=== PATIENT | female | born 1965 | race Caucasian/White ===

== ENCOUNTER 2022-01-12 20:58 | Emergency (ER) | payer MEDICARE, MEDICAID ==
[~2022-01-12] VITALS: Ht 160 cm; Wt 86.4 kg
[2022-01-12 21:39] LABS: BASOPHILS # (AUTO) 0.1 X10'3 (0-0.2); BASOPHILS % (AUTO) 1.3 % (0-1); EOSINOPHILS # (AUTO) 0.5 X10'3 (0-0.9); EOSINOPHILS % (AUTO) 7.9 % (0-6); HEMATOCRIT 35.1 % (35.0-45.0); HEMOGLOBIN 11.6 g/dl (12.0-16.0); LYMPHOCYTES # (AUTO) 1.6 X10'3 (1.1-4.8); LYMPHOCYTES % (AUTO) 26.5 % (21-51); MEAN CORPUSCULAR HEMOGLOBIN 30.4 PG (27.0-31.0); MEAN CORPUSCULAR VOLUME 92.1 FL (78-98); MEAN PLATELET VOLUME 8.1 FL (7.4-10.4); MONOCYTES # (AUTO) 0.7 X10'3 (0-0.9); MONOCYTES % (AUTO) 11.7 % (2-12); NEUTROPHILS # (AUTO) 3.2 X10'3 (1.8-7.7); NEUTROPHILS % (AUTO) 52.6 % (42-75); PLATELET COUNT 253 X10'3 (140-440); RED BLOOD COUNT 3.81 X10'6 (4.20-5.60); WHITE BLOOD COUNT 6.1 X10'3 (4.5-11.0)
[2022-01-12 21:45] LABS: URINE AMPHETAMINE SCREEN NEGATIVE (Neg); URINE BARBITUATE SCREEN NEGATIVE (Neg); URINE BENZODIAZEPINES SCREEN NEGATIVE (Neg); URINE CANNABINOID SCREEN NEGATIVE (Neg); URINE COCAINE SCREEN NEGATIVE (Neg); URINE METHADONE SCREEN NEGATIVE (Neg); URINE OPIATE SCREEN NEGATIVE (Neg); URINE PHENCYCLIDINE SCREEN NEGATIVE (Neg)
[2022-01-12 21:49] LABS: ALANINE AMINOTRANSFERASE 34 U/L (12-78); ALBUMIN 3.9 G/DL (3.4-5.0); ALBUMIN/GLOBULIN RATIO 1.2 (1.1-1.5); ALKALINE PHOSPHATASE 82 IU/L (46-116); ANION GAP 8 (8-16); ASPARTATE AMINO TRANSFERASE 20 U/L (10-37); BILIRUBIN,TOTAL 0.5 MG/DL (0.1-1.0); BLOOD UREA NITROGEN 20 MG/DL (7-18); BUN/CREATININE RATIO 17.9 (6.6-38.0); CALCIUM 8.9 MG/DL (8.5-10.1); CHLORIDE 105 MMOL/L (99-107); CREATININE 1.12 MG/DL (0.40-0.90); GLUCOSE 75 MG/DL (70-104); POTASSIUM 4.4 MMOL/L (3.5-5.1); SODIUM 141 MMOL/L (135-145); TOTAL CARBON DIOXIDE 28.1 MMOL/L (24-32); TOTAL PROTEIN 7.1 G/DL (6.4-8.2); eGFR 50 ML/MIN
[2022-01-12 22:04] LABS: CLARITY,URINE CLEAR (Clear); COLOR,URINE YELLOW (Yellow); GLUCOSE, URINE NEGATIVE (Neg); KETONES,URINE NEGATIVE (Neg); LEUKOCYTE ESTERASE ,URINE SMALL (Neg); NITRITES, URINE NEGATIVE (Neg); OCCULT BLOOD,URINE NEGATIVE (Neg); PROTEIN,URINE NEGATIVE (Neg); UROBILINOGEN,URINE 0.2 E.U/dL (0.2-1.0)
[2022-01-12 22:10] LABS: UA COLLECTION TYPE CLN CATCH MIDSTREAM
[2022-01-12 22:14] LABS: BACTERIA,URINE FEW /HPF (Neg); SQUAMOUS EPITHELIAL CELL,UR NONE SEEN /LPF (FEW)
[2022-01-12] MEDS ORDERED: NITR100C6 PO (22:59)
[2022-01-12] MEDS ORDERED: nitrofuran monohydrate/nitrofuran macrocrysal 100 MG (MacroBID) capsule PO ONE (23:00)
[2022-01-12 23:18] VITALS: BP 124/72
== END 2022-01-12 23:22 | disposition home or self-care (01) ==
LOC: ER 20:59
DX: Z13.89 Encounter for screening for other disorder (principal); N39.0 Urinary tract infection, site not specified; R44.3 Hallucinations, unspecified; R41.82 Altered mental status, unspecified; E78.00 Pure hypercholesterolemia, unspecified; G89.29 Other chronic pain; F31.9 Bipolar disorder, unspecified; Z88.0 Allergy status to penicillin; Z88.2 Allergy status to sulfonamides; Z79.899 Other long term (current) drug therapy
CPT/HCPCS: 36415; 70450; 71045; 80053; 80305; 81001; 85025; 93005; 99285

== ENCOUNTER 2022-12-24 17:44 | Emergency (ER) | payer MEDICARE, MEDICAID ==
[~2022-12-24] VITALS: Ht 160 cm; Wt 74.0 kg
[~2022-12-24 17:44] MED LIST: AMIT150T PO; ASPI-611 PO; ATI1T PO; BUPR200T27 PO; BUSP5TAB26 PO; CHLO25TA68 PO; CHOL100046 PO; CYCL10TA25 PO; GABA600T13 PO; HYDR-3686 PO; PALI819S IM; PANT40TA54 PO; SIMV-42 PO; TRAM50TA2 PO; TRAZ-256 PO
[2022-12-24 19:25] LABS: CLARITY,URINE SLIGHTLY CLOUDY (Clear); COLOR,URINE YELLOW (Yellow); GLUCOSE, URINE NEGATIVE (Neg); KETONES,URINE 40 mg/dl (Neg); LEUKOCYTE ESTERASE ,URINE SMALL (Neg); NITRITES, URINE NEGATIVE (Neg); OCCULT BLOOD,URINE NEGATIVE (Neg); PROTEIN,URINE NEGATIVE (Neg); UROBILINOGEN,URINE 0.2 E.U/dL (0.2-1.0)
[2022-12-24 19:30] LABS: BASOPHILS # (AUTO) 0.1 X10'3 (0-0.2); BASOPHILS % (AUTO) 1.7 % (0-1); EOSINOPHILS # (AUTO) 0.3 X10'3 (0-0.9); EOSINOPHILS % (AUTO) 4.4 % (0-6); HEMATOCRIT 39.1 % (35.0-45.0); HEMOGLOBIN 12.9 g/dl (12.0-16.0); LYMPHOCYTES % (AUTO) 13.4 % (21-51); MEAN CORPUSCULAR HEMOGLOBIN 30.9 PG (27.0-31.0); MEAN CORPUSCULAR VOLUME 93.5 FL (78-98); MONOCYTES # (AUTO) 0.8 X10'3 (0-0.9); MONOCYTES % (AUTO) 10.6 % (2-12); NEUTROPHILS % (AUTO) 69.9 % (42-75); PLATELET COUNT 251 X10'3 (140-440); RED BLOOD COUNT 4.18 X10'6 (4.20-5.60); RED CELL DISTRIBUTION WIDTH 14.7 % (11.5-14.5); WHITE BLOOD COUNT 7.1 X10'3 (4.5-11.0)
[2022-12-24 19:52] LABS: ALANINE AMINOTRANSFERASE 20 U/L (12-78); ALBUMIN/GLOBULIN RATIO 1.3 (1.1-1.5); ALKALINE PHOSPHATASE 82 IU/L (46-116); ANION GAP 9 (8-16); ASPARTATE AMINO TRANSFERASE 9 U/L (10-37); BILIRUBIN,TOTAL 0.4 MG/DL (0.1-1.0); BLOOD UREA NITROGEN 13 MG/DL (7-18); BUN/CREATININE RATIO 14.4 (10.0-20.0); CALCIUM 8.7 MG/DL (8.5-10.1); CHLORIDE 104 MMOL/L (99-107); GLUCOSE 89 MG/DL (70-104); POTASSIUM 3.7 MMOL/L (3.5-5.1); SODIUM 141 MMOL/L (135-145); TOTAL CARBON DIOXIDE 28.5 MMOL/L (24-32); TOTAL PROTEIN 7.2 G/DL (6.4-8.2); eGFR 64 ML/MIN
[2022-12-24 19:57] LABS: URINE AMPHETAMINE SCREEN NEGATIVE (Neg); URINE BARBITUATE SCREEN NEGATIVE (Neg); URINE BENZODIAZEPINES SCREEN NEGATIVE (Neg); URINE CANNABINOID SCREEN NEGATIVE (Neg); URINE COCAINE SCREEN NEGATIVE (Neg); URINE METHADONE SCREEN NEGATIVE (Neg); URINE OPIATE SCREEN NEGATIVE (Neg); URINE PHENCYCLIDINE SCREEN NEGATIVE (Neg)
[2022-12-24 20:18] LABS: UA COLLECTION TYPE VOIDED
[2022-12-24 20:19] LABS: BACTERIA,URINE FEW /HPF (Neg); MUCUS STRANDS MANY /LPF (Neg); RBC,URINE 0-2 /HPF (0-2); SQUAMOUS EPITHELIAL CELL,UR FEW /LPF (FEW); TRANSITIONAL EPI CELLS,URINE FEW /HPF; WBC CLUMPS,URINE FEW /HPF (NEGATIVE); WBC,URINE 30-50 /HPF (0-4)
[2022-12-24] MEDS ORDERED: cephalexin 500mg capsule PO ONE (20:25)
--- NOTE | 2022-12-24 22:16 | NUR ---
Patient brought from main ED to bed 20. Patient is awake and well oriented. She is cooperative. Patient complains of command hallucinations that are telling her to hurt herself. Patient went to a hardware store to get a rope to hang herseld. Acute depression is present. Patient has a Schizoeffective Disorder and CPTSD also. This patient is linear. She makes direct eye contact. Patient placed on bed 20.
[2022-12-24] MEDS ORDERED: TRAZ-251 PO (22:31)
[2022-12-24] MEDS ORDERED: ERGO500041 PO (22:31)
[2022-12-24] MEDS ORDERED: CHLO200T20 PO (22:40)
[2022-12-24] MEDS ORDERED: BUSP5TAB3 PO (22:43)
[2022-12-24] MEDS ORDERED: KETO-96 LEFTEYE (22:46)
[2022-12-24] MEDS ORDERED: KETO-96 RIGHTEYE (22:46)
[2022-12-24] MEDS ORDERED: BUPR100T5 PO (22:55)
[2022-12-24] MEDS ORDERED: AMIT-286 PO (22:59)
[2022-12-24] MEDS ORDERED: PANT-47 PO (23:14)
[2022-12-24] MEDS ORDERED: CETI10TA15 PO (23:16)
[2022-12-24] MEDS ORDERED: FLUT16SP2 BOTHNARES (23:17)
[2022-12-24] MEDS ORDERED: POLY119P2 PO (23:21)
[2022-12-24] MEDS ORDERED: polyethylene glycol 3350 17gm powd pack PO ONE (23:35)
[2022-12-24] MEDS ORDERED: traZODone 150mg tablet PO ONE (23:35)
[2022-12-24] MEDS ORDERED: amitriptyline 50mg tablet PO ONE (23:35)
[2022-12-24] MEDS ORDERED: chlorproMAZINE 25mg tablet PO ONE (23:35)
--- NOTE | 2022-12-25 00:05 | NUR ---
Patient is sleeping intermittently. She self re-positions in bed.
[2022-12-25] MEDS ORDERED: PALI819S IM ×2 (00:34→00:38)
[2022-12-25] MEDS: atorvastatin 10mg tablet PO SCH ×2 (00:44→20:16)
[2022-12-25] MEDS ORDERED: acetaminophen 325mg tablet PO ONE (02:50)
[2022-12-25] MEDS: DOXYCYCLINE 100MG CAPSULE PO SCH ×3 (03:02→20:17)
--- NOTE | 2022-12-25 03:13 | NUR ---
Pt got up and walked up and down the unit. When asked what was going on, she stated "I have a crawling feeling up and down my back that I cannot shake." Primary nurse went to ask EDMD for some ativan to help calm her nerves. Will continue to monitor behavior.
--- NOTE | 2022-12-25 03:13 | NUR ---
Patient awake with anxiety, Dr. Pérez advised. PO Ativan 1 mg ordered.
[2022-12-25] MEDS ORDERED: LORazepam 1 MG tablet PO ONE (03:15)
[2022-12-25 03:50] LABS: URINE HCG NEGATIVE (NEG)
--- NOTE | 2022-12-25 03:50 | NUR ---
Admitting came and collected Pt valueables. 8$ roy and 7 cards were accounted for. Reciept is in Pt wallet, in belongings.
--- NOTE | 2022-12-25 03:53 | NUR ---
Patilent has been given Ativan 1 mg PO for anxiety. Rx antibiotics started for UTI. Tylenol for headaches. Patient is now sleeping quietly in bed.
--- NOTE | 2022-12-25 04:35 | NUR ---
Packet sent to [facility].
--- NOTE | 2022-12-25 05:29 | NUR ---
Patient awoke for vital signs. She rests quietly in bed.
--- NOTE | 2022-12-25 07:06 | NUR ---
KARLA VILLASENOR- Report given. Problems reprioritized.
[2022-12-25] MEDS ORDERED: KETOTIFEN FUMARATE EACHEYE SCH (08:00)
[2022-12-25] MEDS ORDERED: non-formulary drug (Ketotifen Fumarate 1 DROP) RIGHTEYE SCH (08:00)
[2022-12-25] MEDS: busPIRone 5mg tablet PO SCH ×3 (08:03→20:16)
[2022-12-25] MEDS: cetirizine 10mg tablet PO SCH (08:04)
[2022-12-25] MEDS: buPROPion SR 100mg tab PO SCH ×2 (08:04→20:17)
[2022-12-25] MEDS: aspirin 81mg, enteric-coated 1 TAB TABLET.DR PO SCH (08:04)
[2022-12-25] MEDS: pantoprazole 40mg Tablet.DR PO SCH (08:05)
--- NOTE | 2022-12-25 08:11 | NUR ---
PT COMPLIANT WITH AM MEDS, GIVEN BREAKFAST TRAY
[2022-12-25] MEDS: fluticasone nasal spray 16GM bottle NS SCH (08:13)
--- NOTE | 2022-12-25 08:43 | NUR ---
PT APPEARS TO BE SLEEPING, NAD, BREATHING EVEN AND UNLABORED
--- NOTE | 2022-12-25 09:04 | NUR ---
Assumed care from RN. Pt in stable condition. Pt in bed resting.
--- NOTE | 2022-12-25 09:55 | NUR ---
Pt ate her breakfast. Took all meds no ASE noted. Pt states she still feels suicidal. If given the chance pt would hang herself with a rope. No c/o anxiety. Pt states she just feels tired. Pt resting in bed. Declined oral care, or to brush her teeth.
[2022-12-25] MEDS ORDERED: ergocalciferol (vit D2) capsule 50,000 UNITS (1,250mcg) CAPSULE PO SCH (10:00)
--- NOTE | 2022-12-25 11:17 | NUR ---
Pt got up brushed her teeth/ hair. Changed her clothes. Pt is back in bed resting
--- NOTE | 2022-12-25 12:53 | NUR ---
Pt ate 75% of her lunch. Pt asked for her phone to get numbers out so she could call her family. Pt wrote all the numbers down she wanted. Pt sitting up in bed. No c/o anixety or pain.
--- NOTE | 2022-12-25 14:47 | NUR ---
Pt called her family. Pt in bed resting.
--- NOTE | 2022-12-25 15:41 | NUR ---
Pt is resting in the bed w/ eyes closed. Pt is laying on her R side HOB elevated, RR even and unlabored. No s/s of SOB.
--- NOTE | 2022-12-25 17:07 | NUR ---
Pt is resting in the bed w/ eyes closed. Pt is laying on her back HOB elevated
--- NOTE | 2022-12-25 18:02 | NUR ---
[facility] in [place] called for placement. All information provided.
--- NOTE | 2022-12-25 18:04 | NUR ---
Packet will be presented to [facility] and Sadi will follow back up with [facility].
--- NOTE | 2022-12-25 18:45 | NUR ---
Patient rests quietly in bed. She ate a full dinner. Up to bathroom without assistance.
--- NOTE | 2022-12-25 19:47 | NUR ---
Patient rests quietly. Ativan 1 mg given PO for anxiety.
[2022-12-25] MEDS: naphazoline/pheniramine eye 1 DROP BOTTLE EACHEYE PRN (20:15)
[2022-12-25] MEDS: LORazepam 1 MG tablet PO PRN (20:16)
[2022-12-25] MEDS ORDERED: polyethylene glycol 3350 17gm powd pack PO SCH (21:00)
[2022-12-25] MEDS: chlorproMAZINE 25mg tablet PO SCH (21:00)
[2022-12-25] MEDS ORDERED: traZODone 150mg tablet PO SCH (21:00)
[2022-12-25] MEDS: amitriptyline 50mg tablet PO SCH (21:00)
--- NOTE | 2022-12-25 21:15 | NUR ---
Patient is sleeping on her bed in a low fowlers position.
--- NOTE | 2022-12-25 22:37 | NUR ---
Patient continues to sleep quietly.
--- NOTE | 2022-12-25 22:42 | NUR ---
Patient is sleeping quietly on her left side. No distress.
--- NOTE | 2022-12-25 22:45 | NUR ---
Patient is sleeping quietly in a low fowlers position.
--- NOTE | 2022-12-25 23:31 | NUR ---
Patient sleeps, low fowlers position. In view from nurses station.
--- NOTE | 2022-12-26 01:25 | NUR ---
Patient continues to sleep quietlly, low fowlers in bed.
--- NOTE | 2022-12-26 01:31 | NUR ---
Patient sleeping, no distress.
--- NOTE | 2022-12-26 02:45 | NUR ---
Patient awoke and paced back and forth. Her mentation is good. She tells this press writer that she feels much better after getting a late evening Ativan and being able to sleep well. Patient was given her Thorazine and Elavil PO that she did not get earlier as she was sleeping. Patient tells this press writer that she has a very good support group from her buddhist. Patient returned to bed.
[2022-12-26] MEDS: amitriptyline 50mg tablet PO SCH (03:03)
[2022-12-26] MEDS: chlorproMAZINE 25mg tablet PO SCH (03:04)
--- NOTE | 2022-12-26 04:44 | NUR ---
Patient is sleeping qietly in a low fowlers position.
--- NOTE | 2022-12-26 07:04 | NUR ---
Patient resting comfortably, rr even and unlabored.
[2022-12-26] MEDS: pantoprazole 40mg Tablet.DR PO SCH (08:26)
[2022-12-26] MEDS: DOXYCYCLINE 100MG CAPSULE PO SCH (08:26)
[2022-12-26] MEDS: naphazoline/pheniramine eye 1 DROP BOTTLE EACHEYE PRN (08:26)
[2022-12-26] MEDS: buPROPion SR 100mg tab PO SCH (08:27)
[2022-12-26] MEDS: busPIRone 5mg tablet PO SCH ×2 (08:27→13:06)
[2022-12-26] MEDS: aspirin 81mg, enteric-coated 1 TAB TABLET.DR PO SCH (08:27)
[2022-12-26] MEDS: cetirizine 10mg tablet PO SCH (08:27)
[2022-12-26] MEDS: fluticasone nasal spray 16GM bottle NS SCH (08:36)
--- NOTE | 2022-12-26 09:00 | NUR ---
Pt is sitting in mid marroquin's positon with light on. Pt ate 100% of her breakfast. Pt was compliant with her medication. Pt denies A/VH. Pt currently denies SI.
--- NOTE | 2022-12-26 11:00 | NUR ---
Pt resting comfortable, respirations even and unlabored.
--- NOTE | 2022-12-26 14:17 | NUR ---
Patient pacing the unit, waiting for transportation to [place]. Addendum: 12/26/22 at 1419 by [facility] to [facility].
[2022-12-26] MEDS: LORazepam 1 MG tablet PO PRN (14:21)
--- NOTE | 2022-12-26 14:22 | NUR ---
Ativan administered for transport to [place].
--- NOTE | 2022-12-26 15:10 | NUR ---
DISCHARGE NOTE Patient was picked up by [facility] transport at 1507. Original 5150, pt's home medication including (1) Lorazepam 1mg tab, Invega Trinza and pt's pill box were given to dump truck driver off highway, bag of cc and roy. Pt also left with purse and her clothes. Pt was slighly anxious, however was administered her PRN Ativan 1 mg forty five minutes prior to leaving. Pt was calm/coopertive.
[2022-12-26 15:20] VITALS: BP 93/60
[2022-12-27] MEDS ORDERED: PALIPERIDONE PALMITATE IM ONE (06:00)
== END 2022-12-26 15:07 ==
LOC: ER 17:45
DX: R45.851 Suicidal ideations (principal); Z20.822 Contact with and (suspected) exposure to COVID-19; N39.0 Urinary tract infection, site not specified; I10 Essential (primary) hypertension; E78.00 Pure hypercholesterolemia, unspecified; G89.29 Other chronic pain; M54.9 Dorsalgia, unspecified; F31.9 Bipolar disorder, unspecified; F20.9 Schizophrenia, unspecified; Z88.8 Allergy status to other drugs, medicaments and biological substances; Z88.0 Allergy status to penicillin; Z88.2 Allergy status to sulfonamides; Z79.899 Other long term (current) drug therapy
CPT/HCPCS: 36415; 80053; 80305; 81001; 81025; 84443; 85025; 87088; 87811; 99285; Q0161